=== PATIENT | male | born 1965 | race Caucasian/White ===

== ENCOUNTER 2018-02-25 15:25 | Day surgery (SDC) | payer OTHER ==
[~2018-02-25] VITALS: Ht 185.4 cm; Wt 96.0 kg
[~2018-02-25 15:25] MED LIST: NAPROSYN500 MG PO; ULTRACET1 TABLET PO
[2018-02-25 16:08] LABS: BASOPHIL (%) 0.9 % (0-1); BASOPHIL COUNT 0.1 K/uL (0-0.1); EOSINOPHIL (%) 2.4 % (0-5); EOSINOPHIL COUNT 0.2 K/uL (0-0.3); HEMATOCRIT 45.6 % (38.0-50.0); HEMOGLOBIN 16.4 G/DL (12.5-16.6); IMMATURE GRANULOCYTE (%) 0.2 % (0.0-0.7); LYMPHOCYTE (%) 23.5 % (15-42); LYMPHOCYTE COUNT 1.6 K/uL (1.0-2.8); MCH 31.5 PG (29.0-34.0); MCV 87.5 FL (86-99); MONOCYTE (%) 10.5 % (3-12); MONOCYTE COUNT 0.7 K/uL (0-0.8); NEUTROPHIL (%) 62.5 % (45-76); NEUTROPHIL COUNT 4.1 K/uL (1.8-6.4); NRBC (%) 0.3 /100 WBC (0-0); PLATELET COUNT 191 K/uL (156-360); RBC DIS.WIDTH-CV 12.4 % (11.8-14.6); RBC DIS.WIDTH-SD 39.5 % (39-53); RED BLOOD COUNT 5.21 M/uL (4.00-5.50); WHITE BLOOD COUNT 6.6 K/uL (4.1-10.2)
[2018-02-25 16:35] VITALS: BP 132/94
[2018-02-25 16:43] LABS: THYROTROPIN (TSH) 1.3 MIU/L (0.4-5.5)
[2018-02-25 18:11] LABS: ALBUMIN 4.9 G/DL (3.2-4.8); ALKALINE PHOSPHATASE 55 IU/L (3-129); ALT (GPT) 44 IU/L (3-49); AST (GOT) 27 IU/L (2-34); CHLORIDE 107 MEQ/L (99-109); CREATININE 1.1 MG/DL (0.6-1.3); GFR ESTIMATE (CALCULATED) > 59 mL/min/ (58.99-99999); GLUCOSE 95 mg/dL (70-99); HDL CHOLESTEROL 56 MG/DL (Desirable>=40); LDL CHOLESTEROL 168 mg/dL (Desirable<100); NON-HDL CHOLESTEROL 192 mg/dL (Desirable<160); SODIUM 142 MEQ/L (136-147); TOTAL BILIRUBIN 0.8 MG/DL (0.0-1.0); TOTAL CHOLESTEROL 248 mg/dL (Desirable<200); TOTAL PROTEIN 7.4 G/DL (6.4-8.3); TRIGLYCERIDES 122 MG/DL (Normal: <150); UREA NITROGEN (BUN) 14 mg/dL (9-23)
== END 2018-02-25 18:30 | disposition home or self-care (01) ==
LOC: SDC 15:25
PROVIDERS: Ophthalmology
PROC: 08J0XZZ Inspection of Right Eye, External Approach (ICD-10-PCS; principal; 2018-02-25)
DX: H33.21 Serous retinal detachment, right eye (principal); Z53.09 Procedure and treatment not carried out because of other contraindication
CPT/HCPCS: 80053; 80061; 84153; 84443; 85025; 85027; 93005

== ENCOUNTER 2018-02-26 06:08 | Day surgery (SDC) | payer OTHER ==
[~2018-02-26] VITALS: Ht 185.4 cm; Wt 95.9 kg
[2018-02-26 06:58] VITALS: BP 136/82
[2018-02-26 11:48] VITALS: BP 142/76
== END 2018-02-26 15:48 | disposition home or self-care (01) ==
LOC: SDC 06:08 → 2EAST 06:09 → SDC 22:44
DX: H33.021 Retinal detachment with multiple breaks, right eye (principal); Z98.41 Cataract extraction status, right eye
CPT/HCPCS: G0378; J0690; J0713; J1170; J2250; J7120